=== PATIENT | female | born 1965 | race Caucasian/White ===

== ENCOUNTER → 2020-07-03 | Outpatient (CLI) | payer BC, OTHER | LOC: KOH-I 14:04 | DX: M47.26 Other spondylosis with radiculopathy, lumbar region (principal) | CPT/HCPCS: 72100 ==

== ENCOUNTER → 2020-08-18 | Outpatient (CLI) | payer BC, OTHER | LOC: KOH-I 13:30 | DX: F17.210 Nicotine dependence, cigarettes, uncomplicated (principal); R91.1 Solitary pulmonary nodule | CPT/HCPCS: 71271 ==

== ENCOUNTER → 2020-11-14 | Outpatient (CLI) | payer BC, OTHER | LOC: HEART 5 08:54 | DX: R07.9 Chest pain, unspecified (principal); R68.89 Other general symptoms and signs; Z72.0 Tobacco use | CPT/HCPCS: 78452; A9502; J2785 ==

== ENCOUNTER → 2020-12-05 | Outpatient (CLI) | payer BC | LOC: HEART 5 11-30 08:30 | DX: R07.9 Chest pain, unspecified (principal); I08.1 Rheumatic disorders of both mitral and tricuspid valves | CPT/HCPCS: 93306 ==

== ENCOUNTER → 2021-04-30 | Outpatient (CLI) | payer BC ==
[~2021-04-30] VITALS: Ht 162.6 cm; Wt 65.8 kg
== END ==
LOC: EROP 15:49 → EXRD 15:49
DX: U07.1 COVID-19 (principal)
CPT/HCPCS: 96365

== ENCOUNTER → 2021-05-14 | Outpatient (CLI) | payer BC, OTHER | LOC: EXRD 12:46 | DX: E04.1 Nontoxic single thyroid nodule (principal); E04.2 Nontoxic multinodular goiter | CPT/HCPCS: 76536 ==

== ENCOUNTER → 2021-10-15 | Outpatient (CLI) | payer BC | LOC: MRI 14:30 | DX: H53.40 Unspecified visual field defects (principal); H20.00 Unspecified acute and subacute iridocyclitis; R90.89 Other abnormal findings on diagnostic imaging of central nervous system; D18.02 Hemangioma of intracranial structures | CPT/HCPCS: 36415; 70553; 82565; 84520; A9577 ==

== ENCOUNTER → 2021-11-19 | Outpatient (CLI) | payer BC | LOC: LAB 17:49 | DX: E78.5 Hyperlipidemia, unspecified (principal); Z79.899 Other long term (current) drug therapy | CPT/HCPCS: 80061; G0480 ==

== ENCOUNTER → 2021-11-20 | Outpatient (CLI) | payer BC | LOC: LAB 17:05 | DX: E78.5 Hyperlipidemia, unspecified (principal) | CPT/HCPCS: 36415; G0480 ==